=== PATIENT | male | born 1945 | race Native Hawaiian/Other Pacific Islander ===

== ENCOUNTER 2017-08-21 09:54 | Emergency (ER) | payer OTHER ==
[~2017-08-21] VITALS: Ht 182.9 cm; Wt 97.5 kg
[~2017-08-21 09:54] MED LIST: CITALOPRAM20 MG PO; CLONIDINE0.1 MG PO; ZESTRIL40 MG PO
[2017-08-21 10:05] VITALS: TEMP 98.5
[2017-08-21] MEDS ORDERED: BAYER ASA325 M1 PO (10:12)
[2017-08-21 10:30] LABS: PLATELET COUNT 300 K/uL (142-355)
[2017-08-21 10:38] LABS: POTASSIUM 4.6 mmol/L (3.6-5.2); SODIUM 134 mmol/L (136-145)
[2017-08-21 11:37] VITALS: BP 103/60
== END 2017-08-21 11:37 | disposition home or self-care (01) ==
LOC: ED 09:54
PROVIDERS: Internal Medicine
DX: I48.91 Unspecified atrial fibrillation (principal); I10 Essential (primary) hypertension
CPT/HCPCS: 36415; 80053; 82550; 84443; 84484; 85027; 93005; 96372; 99283; J1650

== ENCOUNTER 2018-02-14 13:42 | Emergency (ER) | payer OTHER ==
[~2018-02-14] VITALS: Ht 182.9 cm; Wt 99.8 kg
[2018-02-14 13:50] VITALS: TEMP 98.1
[2018-02-14 14:06] LABS: PLATELET COUNT 397 K/uL (142-355)
[2018-02-14 14:14] LABS: POTASSIUM 4.6 mmol/L (3.6-5.2)
[2018-02-14 15:00] VITALS: BP 145/81
== END 2018-02-14 15:39 | disposition short-term general hospital (02) ==
LOC: ED 13:42
PROVIDERS: Emergency Medicine
DX: I21.3 ST elevation (STEMI) myocardial infarction of unspecified site (principal); R07.89 Other chest pain; E11.9 Type 2 diabetes mellitus without complications; I10 Essential (primary) hypertension; I20.0 Unstable angina
CPT/HCPCS: 36415; 80053; 82550; 82553; 84484; 85027; 93005; 99284

== ENCOUNTER → 2018-02-14 | Outpatient (CLI) | payer OTHER ==
[~2018-02-14] MED LIST changes: +BAYER ASA325 M1 PO
== END | disposition short-term general hospital (02) ==
LOC: AMB 15:35
DX: I21.3 ST elevation (STEMI) myocardial infarction of unspecified site (principal); R07.89 Other chest pain; E11.9 Type 2 diabetes mellitus without complications; I10 Essential (primary) hypertension; I20.0 Unstable angina
CPT/HCPCS: A0425; A0429

== ENCOUNTER 2019-05-04 11:21 | Emergency (ER) | payer OTHER ==
[~2019-05-04] VITALS: Ht 182.9 cm; Wt 103.0 kg
[2019-05-04 12:04] LABS: PLATELET COUNT 211 K/uL (142-355)
[2019-05-04 12:20] LABS: POTASSIUM 4.4 mmol/L (3.6-5.2)
[2019-05-04 13:25] VITALS: BP 123/85; TEMP 98
== END 2019-05-04 13:29 | disposition home or self-care (01) ==
LOC: ED 11:21
PROVIDERS: Emergency Medicine
DX: M72.2 Plantar fascial fibromatosis (principal)
CPT/HCPCS: 36415; 80053; 84550; 85027; 96372; 99283; J1885

== ENCOUNTER 2019-11-12 11:43 | Emergency (ER) | payer OTHER ==
[~2019-11-12] VITALS: Ht 182.9 cm; Wt 103.0 kg
[2019-11-12 11:53] VITALS: TEMP 97.2
[2019-11-12 12:27] LABS: PLATELET COUNT 193 K/uL (142-355)
[2019-11-12 12:34] LABS: POTASSIUM 4.4 mmol/L (3.6-5.2)
[2019-11-12 13:25] VITALS: BP 126/72
== END 2019-11-12 13:25 | disposition home or self-care (01) ==
LOC: ED 11:43
PROVIDERS: Family Medicine
DX: R42 Dizziness and giddiness (principal); I48.91 Unspecified atrial fibrillation
CPT/HCPCS: 80053; 81000; 85027; 85610; 85730; 99283

== ENCOUNTER 2020-07-08 10:59 | Emergency (ER) | payer OTHER ==
[~2020-07-08] VITALS: Ht 182.9 cm; Wt 96.2 kg
[2020-07-08 11:09] VITALS: TEMP 98.1
[2020-07-08 12:36] VITALS: BP 133/66
== END 2020-07-08 12:36 | disposition home or self-care (01) ==
LOC: ED 10:59
DX: M54.5 Low back pain (principal); G89.29 Other chronic pain; M54.16 Radiculopathy, lumbar region
CPT/HCPCS: 96372; 99283; J1885; J2360; J2930

== ENCOUNTER 2020-08-03 06:53 | Emergency (ER) | payer OTHER ==
[~2020-08-03] VITALS: Ht 182.9 cm; Wt 88.5 kg
[2020-08-03 06:53] VITALS: BP 143/85; TEMP 98.4
== END 2020-08-03 08:27 | disposition home or self-care (01) ==
LOC: ED 06:53
DX: M54.5 Low back pain (principal); G89.29 Other chronic pain; M54.16 Radiculopathy, lumbar region; N39.0 Urinary tract infection, site not specified
CPT/HCPCS: 81000; 96372; 99283; J0696; J1170; J2405; J2930

== ENCOUNTER 2020-08-10 09:29 | Emergency (ER) | payer OTHER ==
[~2020-08-10] VITALS: Ht 182.9 cm; Wt 84.4 kg
[2020-08-10 09:36] VITALS: TEMP 96.7
[2020-08-10 10:35] LABS: POTASSIUM 4.9 mmol/L (3.6-5.2)
[2020-08-10 10:37] LABS: PLATELET COUNT 203 K/uL (142-355)
[2020-08-10 12:30] VITALS: BP 126/78
== END 2020-08-10 12:43 | disposition home or self-care (01) ==
LOC: ED 09:29
PROVIDERS: Emergency Medicine Emergency Medical Services
DX: M89.9 Disorder of bone, unspecified (principal); C79.9 Secondary malignant neoplasm of unspecified site
CPT/HCPCS: 36415; 80053; 81000; 85007; 85027; 96360; 96375; 99284; J1100; J1170; Q9963

== ENCOUNTER 2020-08-13 23:03 | Emergency (ER) | payer OTHER ==
[~2020-08-13] VITALS: Ht 182.9 cm; Wt 84.4 kg
[2020-08-13 23:52] LABS: PLATELET COUNT 178 K/uL (142-355)
[2020-08-14 00:09] LABS: POTASSIUM 4.1 mmol/L (3.6-5.2)
[2020-08-14 00:19] LABS: PARTIAL THROMBOPLASTIN TIME 30.1 SECONDS (24.5-33.6)
[2020-08-14 02:50] VITALS: BP 128/71; TEMP 97.9
== END 2020-08-14 02:50 | disposition short-term general hospital (02) ==
LOC: ED 23:03
PROVIDERS: Hospitalist
PROC: 0T9B70Z Drainage of Bladder with Drainage Device, Via Natural or Artificial Opening (ICD-10-PCS; principal; 2020-08-13)
DX: S72.092A Other fracture of head and neck of left femur, initial encounter for closed fracture (principal); Z03.818 Encounter for observation for suspected exposure to other biological agents ruled out; R51.9 Headache, unspecified; M25.552 Pain in left hip; R07.89 Other chest pain; W18.39XA Other fall on same level, initial encounter; Y92.098 Other place in other non-institutional residence as the place of occurrence of the external cause
CPT/HCPCS: 36415; 51702; 80048; 80320; 85027; 85610; 85730; 87635; 96361; 96374; 96375; 99284; J1170; J1815; J1885; J2405; U0003

== ENCOUNTER 2020-09-01 21:07 | Emergency (ER) | payer OTHER ==
[~2020-09-01] VITALS: Ht 182.9 cm; Wt 84.4 kg
[2020-09-01 22:29] LABS: PLATELET COUNT 216 K/uL (142-355)
[2020-09-02 00:36] VITALS: BP 110/58; TEMP 99.5
== END 2020-09-02 00:36 | disposition short-term general hospital (02) ==
LOC: ED 21:07
PROVIDERS: Emergency Medicine Emergency Medical Services
DX: J18.9 Pneumonia, unspecified organism (principal); R09.02 Hypoxemia; I21.4 Non-ST elevation (NSTEMI) myocardial infarction; F10.129 Alcohol abuse with intoxication, unspecified; S00.83XA Contusion of other part of head, initial encounter; S00.03XA Contusion of scalp, initial encounter; Z20.828 Contact with and (suspected) exposure to other viral communicable diseases
CPT/HCPCS: 36415; 36600; 80053; 82805; 83605; 83735; 84484; 85007; 85027; 85379; 85610; 87040; 87502; 87635; 93005; 94664; 96360; 96365; 96366; 99285; J0456; J0696; J1650; U0003